=== PATIENT | male | born 1975 | race Caucasian/White ===

== ENCOUNTER 2017-09-27 03:30 | Emergency (ER) | payer BC ==
[~2017-09-27] VITALS: Ht 172.7 cm; Wt 97.5 kg
--- NOTE | 2017-09-27 03:30 | NUR ---
PT GLENYS ALS. TAKEN TO BED 3
[2017-09-27 03:39] VITALS: BP 119/71
[2017-09-27] MEDS ORDERED: ALBU-118 IH (03:50)
[2017-09-27] MEDS ORDERED: VILA20TA PO (03:50)
[2017-09-27] MEDS ORDERED: CARI4.5C PO (03:50)
--- NOTE | 2017-09-27 03:52 | NUR ---
BIBA FOR RLQ ABD PAIN. SEEN IN URGENT CARE TONIGHT AND TAMPON REMOVED. PT NOT SURE WHAT HAPPENED TO HER IUD, IF ITS STILL IN OR NOT. 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 PT BORN FEMALE BUT LIVING MALE MED HX: BIPLOPAR/ANXIETY/ASTHMA/MIGRAINES PT DENIES N/V/D; SKIN IS PINK/WARM/DRY; AAOX4 WITH EVEN AND STEADY GAIT; LUNGS CLEAR BL; HR EVEN AND REGULAR; PT DENIES ANY FEVER, CP, SOB, OR COUGH AT THIS TIME; PATIENT STATES PAIN OF 8/10 AT THIS TIME; VSS; PATIENT POSITIONED FOR COMFORT; HOB ELEVATED; BEDRAILS UP X2; BED DOWN. ER MADE AWARE OF PT STATUS. Addendum: 09/27/17 at 0400 by [facility] PT REPORTS SUBSTANCE ABUSE IN THE LAST MONTH, INCLUDING COCAINE, METH AND POT. PREVIOUS HX CLONOPINE ADDICTION.
[2017-09-27 03:56] LABS: BASOPHILS # (AUTO) 0.5 K/uL (0.00-0.22); BASOPHILS % (AUTO) 3.8 % (0.0-2.0); EOSINOPHILS % (AUTO) 0.3 % (0.0-4.0); HEMATOCRIT 37.1 % (36-52); HEMOGLOBIN 12.2 g/dL (12.0-18.0); LYMPHOCYTES % (AUTO) 13.7 % (20.5-51.1); MEAN CORPUSCULAR HEMOGLOBIN 29 pg (27-31); MEAN CORPUSCULAR HGB CONC 33 g/dL (33-37); MEAN CORPUSCULAR VOLUME 87.5 fL (80-94); MONOCYTES # (AUTO) 1.3 K/uL (0.8-1.0); MONOCYTES % (AUTO) 9.1 % (1.7-9.3); NEUTROPHILS # (AUTO) 10.6 K/uL (1.8-7.7); NEUTROPHILS % (AUTO) 73.1 % (42.2-75.2); PLATELET COUNT (AUTO) 269 K/uL (140-450); RED BLOOD CELL COUNT(AUTO) 4.24 MIL/uL (4.20-6.10); RED CELL DISTRIBUTION WIDTH 11.9 % (11.6-13.7); WHITE BLOOD COUNT (AUTO) 14.4 K/uL (4.8-10.8)
[2017-09-27 04:12] LABS: ALBUMIN 3.4 g/dL (3.4-5.0); ANION GAP 16.5 (8-16); CARBON DIOXIDE 26.3 mmol/L (21-32); POTASSIUM 3.8 mmol/L (3.5-5.1); TOTAL BILIRUBIN 0.7 mg/dL (0.0-1.0)
[2017-09-27 04:25] LABS: APPEARANCE,URINE CLOUDY (CLEAR); BILIRUBIN,URINE NEGATIVE (NEGATIVE); BLOOD, URINE TRACE-L (NEGATIVE); COLOR,URINE YELLOW (YELLOW); LEUKOCYTE ESTERASE ,URINE 3+ (NEGATIVE); NITRITE, URINE NEGATIVE (NEGATIVE); UGLUCOSE NEGATIVE (NEGATIVE)
--- NOTE | 2017-09-27 04:31 | NUR ---
PT TAKEN TO CT
[2017-09-27 04:32] LABS: BARBITURATE, URINE NEG. ng/ml (NEG <=200); BENZODIAZEPINE, URINE NEG. ng/mL (NEG <=200); CANNABINOID, URINE POS. ng/mL (NEG <=50); COCAINE, URINE NEG. ng/mL (NEG <=300); OPIATE, URINE NEG. ng/mL (NEG <=2000); PHENCYCLIDINE SCREEN,URINE NEG. ng/mL (NEG <=25)
--- NOTE | 2017-09-27 04:40 | NUR ---
PT BACK FROM CT
[2017-09-27 04:41] LABS: RBC,URINE 0-5 (RARE) /HPF (0-5); WBC,URINE TOO MANY TO COUNT /HPF (0-5)
[2017-09-27] MEDS ORDERED: KETOROLAC 30 MG/ML VIAL ONE (05:02)
[2017-09-27] MEDS ORDERED: KETOROLAC 30 MG/ML VIAL IVP ONE ×2 (05:02→06:05)
--- NOTE | 2017-09-27 05:19 | NUR ---
Patient appears to be resting comfortably in bed. Respirations even and unlabored.
[2017-09-27] MEDS ORDERED: MORPHINE SULFATE 4 MG/ML SYR ONE (05:40)
[2017-09-27] MEDS ORDERED: MORPHINE SULFATE 4 MG/ML SYR IVP ONE (05:40)
--- NOTE | 2017-09-27 06:05 | NUR ---
Dr. Mckeon evaluating patient.
[2017-09-27 06:35] VITALS: BP 126/75
--- NOTE | 2017-09-27 06:35 | NUR ---
Patient discharged with v/s stable. Written and verbal after care instructions given and explained by Dr. Mckeon. Patient alert, oriented and verbalized understanding of instructions. Ambulatory with steady gait. All questions addressed prior to discharge. ID band removed. Patient advised to follow up with PMD. Rx of MILK OF MAGNESIA 10ML, AND MACROBID given by Dr. Mckeon. Patient educated on indication of medication including possible reaction and side effects by Dr. Mckeon. Opportunity to ask questions provided and answered by Dr. Mckeon.
== END 2017-09-27 06:35 | disposition home or self-care (01) ==
LOC: MED 03:30
DX: N39.0 Urinary tract infection, site not specified (principal); K59.00 Constipation, unspecified
CPT/HCPCS: 36415; 74176; 80053; 80305; 81001; 85025; 87086; 96374; 96375; 99285; J1885; J2270; 81025